=== PATIENT | male | born 1975 | race Caucasian/White ===

== ENCOUNTER 2016-10-23 20:31 | Emergency (ER) | payer OTHER ==
[~2016-10-23] VITALS: Ht 175.3 cm; Wt 86.2 kg
[2016-10-23 20:54] VITALS: BP 135/71
--- NOTE | 2016-10-23 21:16 | ED UPPER/LOWER EXTREMITY COMPL ---
History of Present Illness General Chief Complaint: Foot or Ankle Injury Stated Complaint: RIGHT LITTLE TOE INJURY Source: patient Exam Limitations: no limitations Vital Signs & Intake/Output Vital Signs & Intake/Output Vital Signs Date Time Temp Pulse Resp B/P B/P Pulse O2 O2 Flow FiO2 Mean Ox Delivery Rate 10/23 2053 99.0 73 18 135/71 97 Room Air Allergies Uncoded Allergies: POSION TERESITA (Intermediate, RASH 10/23/16) Reconcile Medications No Known Home Medications Triage Note: TRIAGE: PT TO ER C/C R LITTLE TOE PAIN S/P INJURY APPROX 8 PM, STATES HE ACCIDENTALLY JAMMED IT ON THE DOOR JAMB. REFUSES OFFERED PAIN MEDS AT TRIAGE. Triage Nurses Notes Reviewed? yes Onset: Abrupt Duration: constant Timing: single episode today Severity: mild Severity Numbers: 3 Method of Injury: direct blow HPI: Patient is a 41-year-old male who presents emergency and that today while ambulating he accidentally struck the distal aspect of his right fifth digit of his toe into a door resulting every onset of pain and swelling. She states that ambulation makes worse. Skin is intact no bleeding has occurred no medications given prior to arrival (YAJAIRA SALES) Past History Travel History Traveled to [place] past 21 day No Medical History Any Pertinent Medical History? none Neurological: NONE EENT: NONE Cardiovascular: NONE Respiratory: NONE Gastrointestinal: NONE Hepatic: NONE Renal: NONE Musculoskeletal: NONE Psychiatric: NONE Endocrine: NONE Blood Disorders: NONE Cancer(s): NONE CALENDERER/Reproductive: NONE Tetanus Vaccine: 08/25/11 Surgical History Surgical History: non-contributory Psychosocial History What is your primary language Syriac Tobacco Use: Current Not Daily ETOH Use: occasional use Illicit Drug Use: denies illicit drug use Family History Hx Contributory? No (YAJAIRA SALES) Review of Systems Review of Systems Constitutional: Reports: no symptoms. EENTM: Reports: no symptoms. Respiratory: Reports: no symptoms. Cardiovascular: Reports: no symptoms. Gastrointestinal/Abdominal: Reports: no symptoms. Genitourinary: Reports: no symptoms. Musculoskeletal: Reports: see HPI, joint pain. Skin: Reports: no symptoms. Neurological/Psychological: Reports: no symptoms. Hematologic/Endocrine: Reports: no symptoms. Immunological: Reports: no symptoms. All Other Systems: Reviewed and Negative (YAJAIRA SALES) Physical Exam Physical Exam General Appearance: no apparent distress, alert, comfortable Neurologic/Tendon: normal sensation, normal motor functions, normal tendon functions, responds to pain, no evidence tendon injury Skin: intact, normal color, warm/dry Comments: Well-developed well-nourished no apparent distress. HEENT: Atraumatic, extraocular motion intact Neck: Supple, no lymphadenopathy Back: Nontender Respiratory: No respiratory distress Neuro: Alert and oriented x3 Psych: Mood affect normal, normal memory normal judgment. Diagram Feet Top 1) Noted swelling AND point tenderness Skin intact no ecchymosis dermatomes intact CAPILLARY refill less than 2 seconds (YAJAIRA SALES) Progress Differential Diagnosis: arterial insufficiency, compartment syndrome, contusion, dislocation, DVT, fracture, septic arthritis, sprain, tendon injury Plan of Care: Orders Procedure Date/time Status Durable Medical Equipment 10/23 2157 Active Patient has noted osseous injury to the proximal phalangeal the fifth digit of toe. Skin is intact. Crutches were administered (YAJAIRA SALES) Diagnostic Imaging: Viewed by Me: Radiology Read. Radiology Impression: acute abnormality, fracture Comments: PATIENT: OTONIEL LUIS PRESENT AGE: 41 PATIENT ACCOUNT NO: [id number] : 74 LOCATION: [facility] ORDERING PHYSICIAN: YAJAIRA VITALE SERVICE DATE: 10/23/16 EXAM TYPE: RAD - XRY-TOES, RIGHT EXAMINATION: XR TOES, RIGHT CLINICAL INFORMATION: Trauma COMPARISON: None TECHNIQUE: 3 views of the right 5th toe were obtained. FINDINGS: There is an acute fracture of the proximal phalanx of the right fifth toe with adjacent soft tissue swelling. The fracture does not involve the interphalangeal or metatarsophalangeal joints. No other acute fractures or dislocations is seen. No radiodense foreign body. IMPRESSION: Acute fracture of the proximal phalanx of the right fifth toe. DICTATED BY: THOMAS BENAVIDES MD DATE/TIME DICTATED:10/23/162147 (YAJAIRA SALES) Departure Departure Disposition: HOME OR SELF CARE Condition: Stable Clinical Impression Primary Impression: Fracture of fifth toe, right, closed Referrals: ROSA ISELA CERNA MD (PCP/Family) JUDI URIBE DPM Additional Instructions: As discussed tomorrow please follow up and establish LIBRARY HISTORIAN, Dr. Uribe for further evaluation treatment. Begin using the crutches until you walk without pain. Begin icing the area 20 minutes every 2 hours. Begin over-the- counter ibuprofen for pain and inflammation. If symptoms worsen return to emergency room. Departure Forms: Customer Survey General Discharge Information Prescriptions: Current Visit Scripts No Known Home Medications (GEENA VITALE,YAJAIRA) PA/BEATER ROOM SUPERVISOR Co-Sign Statement Statement: ED Attending supervision documentation- [] I saw and evaluated the patient. I have also reviewed all the pertinent lab results and diagnostic results. I agree with the findings and the plan of care as documented in the PA's/BEATER ROOM SUPERVISOR's documentation. [x] I have reviewed the ED Record and agree with the PA's/BEATER ROOM SUPERVISOR's documentation. [] Additions or exceptions (if any) to the PAs/BEATER ROOM SUPERVISOR's note and plan are summarized below: [] (NEGAR ASIF,KINZA Griggs)
--- NOTE | 2016-10-23 21:53 | RADIOLOGY REPORT ---
EXAMINATION: XR TOES, RIGHT CLINICAL INFORMATION: Trauma COMPARISON: None TECHNIQUE: 3 views of the right 5th toe were obtained. FINDINGS: There is an acute fracture of the proximal phalanx of the right fifth toe with adjacent soft tissue swelling. The fracture does not involve the interphalangeal or metatarsophalangeal joints. No other acute fractures or dislocations is seen. No radiodense foreign body. IMPRESSION: Acute fracture of the proximal phalanx of the right fifth toe.
== END 2016-10-23 22:12 ==
LOC: ERH 20:31
DX: S92.511A Displaced fracture of proximal phalanx of right lesser toe(s), initial encounter for closed fracture (principal); W22.8XXA Striking against or struck by other objects, initial encounter; Y92.9 Unspecified place or not applicable; Y93.9 Activity, unspecified
CPT/HCPCS: 73660-RT